=== PATIENT | male | born 1985 | race Caucasian/White ===

== ENCOUNTER 2016-12-22 20:07 | Emergency (ER) | payer SELFPAY ==
[~2016-12-22] VITALS: Ht 180.3 cm; Wt 97.5 kg
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
[2016-12-22] MEDS ORDERED: ACETAMINOPHEN ES 500 MG TABLET PO ONE (20:45)
[2016-12-22] MEDS ORDERED: ACETAMINOPHEN ES 500 MG TABLET ONE (21:05)
--- NOTE | 2016-12-22 22:10 | NUR ---
Patient discharged to home in stable conditon. Written and verbal after care instructions given. Patient verbalizes understanding of instructions. PT walked out of ER unassisted with family and belongings at side...
[2016-12-22 22:12] VITALS: BP 131/95
== END 2016-12-22 22:13 | disposition home or self-care (01) ==
LOC: ER 20:07
DX: S06.0X0A Concussion without loss of consciousness, initial encounter (principal); S13.4XXA Sprain of ligaments of cervical spine, initial encounter; R51 Headache; V49.9XXA Car occupant (driver) (passenger) injured in unspecified traffic accident, initial encounter; Y93.89 Activity, other specified; Y99.8 Other external cause status; Y92.89 Other specified places as the place of occurrence of the external cause
CPT/HCPCS: 70450; 72125; A4663

== ENCOUNTER 2016-12-25 19:08 | Emergency (ER) | payer SELFPAY ==
--- NOTE | 2016-12-25 20:11 | NUR ---
PT LEFT WITH BEING TRIAGE. WAS CALLED SEVERAL TIMES. CAME UP TO DEV TECHNICAL [facility] WINDOW AND STATES "I AM LEAVING."
[2016-12-26] MEDS ORDERED: ACET-2605 PO (07:24)
== END 2016-12-25 20:13 | disposition left against medical advice (07) ==
LOC: ER 19:11
DX: Z53.21 Procedure and treatment not carried out due to patient leaving prior to being seen by health care provider (principal)

== ENCOUNTER 2016-12-26 07:11 | Emergency (ER) | payer SELFPAY ==
[~2016-12-26] VITALS: Ht 180.3 cm; Wt 97.5 kg
[2016-12-26] MEDS ORDERED: ACET-2605 PO (07:24)
--- NOTE | 2016-12-26 08:33 | NUR ---
Patient discharged to home in stable conditon. Written and verbal after care instructions given. Patient verbalizes understanding of instructions. Stressed follow up with pmd or return to ER for worsening s/s.
== END 2016-12-26 08:34 | disposition home or self-care (01) ==
LOC: ER 07:11
DX: F07.81 Postconcussional syndrome (principal); G44.309 Post-traumatic headache, unspecified, not intractable
CPT/HCPCS: 70450; 99284; A4663